=== PATIENT | female | born 1995 | race Caucasian/White ===

== ENCOUNTER 2020-03-26 13:46 | Emergency (ER) | payer OTHER ==
[~2020-03-26] VITALS: Ht 167.6 cm; Wt 79.5 kg
[2020-03-26 13:50] VITALS: TEMP 98.2
[2020-03-26] MEDS ORDERED: ZYRTEC 10MG10 MG PO (13:54)
[2020-03-26] MEDS ORDERED: CRUTCHES MC ×2 (14:54)
[2020-03-26 15:11] VITALS: BP 118/72; PULSE 81
== END 2020-03-26 15:12 | disposition home or self-care (01) ==
LOC: COL.ER 13:46
DX: S93.401A Sprain of unspecified ligament of right ankle, initial encounter (principal); W01.0XXA Fall on same level from slipping, tripping and stumbling without subsequent striking against object, initial encounter; Y93.01 Activity, walking, marching and hiking; Y92.009 Unspecified place in unspecified non-institutional (private) residence as the place of occurrence of the external cause